=== PATIENT | female | born 1960 | race Caucasian/White ===

== ENCOUNTER → 2019-02-13 | Day surgery (SDC) | payer OTHER ==
--- NOTE | 2019-02-14 16:21 | PATH ---
Cytology Non-Gynecological Report Patient Name: EVAN MARTIN [facility]. Rec. #: [id number] /Age/Gender: 1960 (Age: 58) / F Account: [id number] Location: RADIOLOGY INTER Taken: 02/13/2019 Received: 02/13/2019 Reported: 02/14/2019 Physicians: Farrah Corado M.D. Specimen(s) Received LEFT THYROID FNA Clinical History Left, 1.37 x 0.75 x 1.36 cm Final Diagnosis THYROID, LEFT, FINE NEEDLE ASPIRATION: SATISFACTORY FOR EVALUATION. B[place] CLASS II: BENIGN. CYTOLOGIC FINDINGS ARE CONSISTENT WITH A BENIGN FOLLICULAR NODULE. SMALL FOLLICULAR CELLS, COLLOID, FEW LYMPHOCYTES, AND RARE MACROPHAGES PRESENT. Electronically Signed Miryam French M.D. Gross Description Received are eight direct smears, four of which are air-dried and Diff-Quik stained, and four of which are alcohol fixed and Pap stained. Also received is 20 ml of bloody formalin from which one cellblock is prepared.
== END | disposition home or self-care (01) ==
LOC: JRADIR 08:56
PROVIDERS: ATTEND Otolaryngology
PROC: 0G9G3ZX Drainage of Left Thyroid Gland Lobe, Percutaneous Approach, Diagnostic (ICD-10-PCS; principal; 2019-02-13)
DX: E04.1 Nontoxic single thyroid nodule (principal)
CPT/HCPCS: 76942; 88173; 88305-TC